=== PATIENT | female | born 1935 | race Caucasian/White ===

== ENCOUNTER 2021-05-08 06:18 | Inpatient (IN) | payer MEDICARE, MEDICAID ==
[~2021-05-08] VITALS: Wt 68.2 kg
[2021-05-08 07:05] LABS: HEMATOCRIT 40.7 % (37.0-47.0); HEMOGLOBIN 13.8 g/dl (12.5-16.0); MEAN CELL VOLUME 94 fl (80.0-100.0); MEAN CORPUSCULAR HEMOGLOBIN 32 pg (27-31); MEAN CORPUSCULAR HGB CONC 34 g/dl (33.0-37.0); PLATELET COUNT 198 K/mm3 (130-400); RED BLOOD COUNT 4.34 M/mm3 (4.10-5.30); REDCELL DISTRIBUTION WIDTH-CV 12.7 % (11.5-14.5)
[2021-05-08 07:21] LABS: ALBUMIN 3.9 gm/dL (3.4-4.8); BILIRUBIN,TOTAL 0.8 mg/dL (0.2-1.2); CALCIUM 9.1 mg/dL (8.4-10.2); CREATININE, serum 1.1 mg/dL (0.57-1.11)
[2021-05-08 07:45] LABS: BAND 12 % (0-10); LYMPHOCYTE 2 % (20.0-51.0); NEUTROPHILS 86 % (42.0-75.2); PLATELET ESTIMATE NORMAL (NORMAL)
[2021-05-08 07:57] LABS: COLLECTION METHOD CLEAN CATCH
[2021-05-08 08:03] LABS: MUCOUS Present (NOT PRESENT); PH 7 (5-8); SQUAMOUS EPITHELIAL 0-2 /hpf (0-10); URINE APPEARANCE Clear (CLEAR/HAZY); URINE BACTERIA None Seen /hpf (NONE SEEN); URINE BILIRUBIN Negative (NEGATIVE); URINE BLOOD Negative (NEGATIVE); URINE COLOR Yellow (YELLOW); URINE GLUCOSE Negative (NEGATIVE); URINE KETONE Negative (NEGATIVE); URINE LEUKOCYTE ESTERASE Negative (NEGATIVE); URINE NITRATE Negative (NEGATIVE); URINE PROTEIN(semi-quant) Negative (NEGATIVE); URINE RBC 0-2 /hpf (0-2); URINE UROBILINOGEN Negative (NEGATIVE)
[2021-05-08] MEDS ORDERED: LASIX 40MG TABL40 MG PO (12:55)
[2021-05-08] MEDS ORDERED: ELIQUIS 5MG PO (12:56)
[2021-05-08] MEDS ORDERED: NEURONTIN300 MG/CAP PO (12:57)
[2021-05-08] MEDS ORDERED: SYNTHROID0.125 MG/T PO (12:57)
[2021-05-08] MEDS ORDERED: CALCIUM 600MG+D1 TAB PO (13:01)
[2021-05-08] MEDS ORDERED: VITAMIN D31000 I1 PO (13:01)
[2021-05-08] MEDS ORDERED: B COMPLEX #11 TA1 PO (13:02)
[2021-05-08 15:31] VITALS: BP 80/40; PULSE 81; TEMP 98.3
[2021-05-08 16:00] VITALS: BP 87/46; PULSE 83; TEMP 98.2
[2021-05-08 19:13] VITALS: BP 110/52
--- NOTE | 2021-05-08 19:26 | NUR ---
Patient admitted to room 358 from ED. Admission assessment completed. Med rec completed. BP soft, all other VSS. Ivania Sam notified of BP's running 80/40's, 500 bolus of LR ordered and administered. Upon recheck, BP's continued to be in the 80's/40's. Jenn contacted. Phone order for 1000 Ml bolous of LR and rate change of maintenance fluids from 150 ml/hr to 200 ml/hr recieved. LR administered as ordered. BP rechecked and read 110/50. All other VSS. Patient is A&O. Denies any pain, discomfort, SOA, or further needs at this time. Call light in reach. Fall percautions in place.
[2021-05-08 19:51] VITALS: BP 96/48; PULSE 74; TEMP 97.4
[2021-05-08 23:52] VITALS: BP 100/81; PULSE 85; TEMP 98.5
[2021-05-09] VITALS (7 sets, daily range): BP systolic 92–106; BP diastolic 42–58; PULSE 72–89; TEMP 97.9–98.7
--- NOTE | 2021-05-09 04:59 | NUR ---
PATIENT CALM AND COOPERATIVE THROUGHOUT THE NIGHT. ZOFRAN ADMINISTERED TWO TIMES THROUGHOUT THE NIGHT DUE TO COMPLAINTS OF NAUSEA.
[2021-05-09 07:48] LABS: MAGNESIUM 1.7 mg/dL (1.6-2.6); POTASSIUM 3.6 mmol/L (3.5-4.5)
[2021-05-09 08:13] LABS: HEMATOCRIT 37.1 % (37.0-47.0); HEMOGLOBIN 12.3 g/dl (12.5-16.0); MEAN CELL VOLUME 95 fl (80.0-100.0); MEAN CORPUSCULAR HEMOGLOBIN 32 pg (27-31); MEAN CORPUSCULAR HGB CONC 33 g/dl (33.0-37.0); MEAN PLATELET VOLUME 10.9 fl (7.4-10.4); PLATELET COUNT 169 K/mm3 (130-400); REDCELL DISTRIBUTION WIDTH-CV 13.5 % (11.5-14.5)
[2021-05-09 08:27] LABS: CALCIUM 8.1 mg/dL (8.4-10.2); CREATININE, serum 1.23 mg/dL (0.57-1.11); POTASSIUM 3.5 mmol/L (3.5-4.5)
--- NOTE | 2021-05-09 08:30 | NUR ---
Pt assessment complete. Pt is sitting up in bed upon entry, she is A/O x4. Her breathing is even and unlabored on RA. Pt denies SOB. Despite low bp, pt denies any dizziness. Pt denies pain at this time, reports she had a headache but Tylenol relieved this. Denies any N/V, states she had a "normal" BM early this am. Tolerating clear liquids without issues. BLE elevated on pillows. No needs at this time. Call light within reach.
[2021-05-09 08:31] LABS: BAND 15 % (0-10); BASOPHIL 1 % (0-2); LYMPHOCYTE 2 % (20.0-51.0); NEUTROPHILS 80 % (42.0-75.2)
[2021-05-09 08:32] LABS: PLATELET ESTIMATE NORMAL (NORMAL)
--- NOTE | 2021-05-09 10:41 | NUR ---
Initial visit; Patient thanked Desk Operator for looking in on her, offering God's blessings and prayer.
--- NOTE | 2021-05-09 10:58 | NUR ---
Social Work student and DIANN Borja met with patient to discuss discharge planning. Patient lives alone in a group home community in [place] called [facility]. Patient reports that she currently reisdes on the third floor. Patient's emergency contact is her brother, Ang, who is reached via his , Dong, phone#([phone]). Patient seees Dr. Ritter at [facility] for primary care. [facility] Patient reports that she utilizes a cane, walker, and a toilet fraud prevention analyst as medical equiptment at home. Patient does not use any oxygen. Patient states that she is independent with her ADL's. Patient says that she has a DPOA-HC filled out, but the hospital does not have a copy. DIANN marcial reached out to Emi at [facility] to secure a copy with no luck. Therefore, the patient's next of kin is her three, adult kids: Pradip Kramer(ph#[phone]) who lives in [place], Amina Kramer(ph#[phone]) who lives in [place], and Gaudencio Nia(ph#[phone]) who lives in [place]. Patient also stated that Gaudencio is reliable to call in times of need. PT reccommended HH, so DIANN marcial followed up with that with patient. DIANN marcial gave patient a list of HH that service [place] from Medicare to gain her preference. Patient said that she is okay with HH coming to see her and picked out [facility] as her preference. Discharge plan: Home with [facility]
--- NOTE | 2021-05-09 11:31 | NUR ---
Contacted Jen with [facility] about patient. SW Student faxed a HH referral to [facility].
--- NOTE | 2021-05-09 14:32 | NUR ---
Pt reports she feels "crummy". Reports she is very cold and shivering, temperature obtained, WNL. Pt reports she has body aches and feels as if she is coming down with something, reports she feels like she has post nasal drip. Reported to WALKER [facility]. Tylenol administered.
--- NOTE | 2021-05-09 20:00 | NUR ---
Patient is in the chair, alert and oriented x 4, VSS. States having nausea, Zofran provided. Assissted to the bed with the use of the walker. Weakness in her legs. Edema noted in BLE, more noticeable on the left, she states some discomfort. Continues with SBP in 100-110. Receiving LR AT 125 ml/hr. Assessment completed, medications provided. She asked for some nasal spray to reduce the nasal congestion and mucus. Veronica contacted and added a nasal spray. No other needs at this time. Call light within reach.
[2021-05-09] MEDS ORDERED: NASACORT OTC NS (20:56)
[2021-05-10 04:05] VITALS: BP 118/52; PULSE 74; TEMP 98.2
--- NOTE | 2021-05-10 05:36 | NUR ---
Patient has change from SBP 91 TO 118. She complains of discomfort in her legs related to fluid accumulation. Some nausea in early night. Zofran provided. Report will be given to day RN.
[2021-05-10 06:07] LABS: POTASSIUM 3.6 mmol/L (3.5-4.5)
[2021-05-10 07:20] VITALS: BP 115/50; PULSE 76; TEMP 98.6
[2021-05-10 07:50] LABS: CALCIUM 8.1 mg/dL (8.4-10.2); CREATININE, serum 0.96 mg/dL (0.57-1.11)
[2021-05-10 08:34] LABS: HEMOGLOBIN 11.7 g/dl (12.5-16.0); MEAN CELL VOLUME 96 fl (80.0-100.0); MEAN CORPUSCULAR HEMOGLOBIN 32 pg (27-31); MEAN CORPUSCULAR HGB CONC 33 g/dl (33.0-37.0); MEAN PLATELET VOLUME 11.2 fl (7.4-10.4); PLATELET COUNT 146 K/mm3 (130-400); RED BLOOD COUNT 3.68 M/mm3 (4.10-5.30); REDCELL DISTRIBUTION WIDTH-CV 13.5 % (11.5-14.5)
[2021-05-10 08:37] LABS: HEMATOCRIT 35.4 % (37.0-47.0)
[2021-05-10] MEDS ORDERED: OMNICEF 300MG300 MG PO (09:00)
[2021-05-10 09:02] LABS: BAND 6 % (0-10); EOSINOPHIL 1 % (0-4); LYMPHOCYTE 3 % (20.0-51.0); NEUTROPHILS 90 % (42.0-75.2); PLATELET ESTIMATE NORMAL (NORMAL)
--- NOTE | 2021-05-10 09:49 | NUR ---
stockroom worker met with patient to discuss today. Asked for nursing to be added to HH orders. Patient asks about clothing. SW checked stock and no pants found for the patient to return home in. Patient states that her brother is going to be here around 1000 and will be providing transportation home. Discharge plan: Home with [facility]
--- NOTE | 2021-05-10 11:26 | NUR ---
Clinical updates and discharge orders faxed to [facility]
--- NOTE | 2021-05-10 11:45 | NUR ---
Scheduled medications given. Shift assessment performed. PRN tylenol given once this shift for headache. Patient states that this medication helped. VSS. Patient A&O. Patient deemed fit for discharge. IV DC'd catheter intact, no signs of phlebitis. Discharge education/instructions given. All question answered. Patient denies any further pain, discomfort, SOA, or further needs at this time. Patient escorted from building via wheelchair by [facility] staff. Family transporting home. Home Health to contact patient.
== END 2021-05-10 11:45 | disposition home health service (06) | DRG 392 ==
LOC: COL.ER 06:18 → MEDICAL 09:27
PROVIDERS: Personal Emergency Response Attendant; Physician Assistant; ADMIT Internal Medicine
DX: A08.4 Viral intestinal infection, unspecified (principal); E03.9 Hypothyroidism, unspecified; G62.9 Polyneuropathy, unspecified; E87.6 Hypokalemia; R09.02 Hypoxemia; Z66 Do not resuscitate; Z96.641 Presence of right artificial hip joint; Z86.718 Personal history of other venous thrombosis and embolism; Z85.43 Personal history of malignant neoplasm of ovary; Z85.828 Personal history of other malignant neoplasm of skin; Z79.01 Long term (current) use of anticoagulants
CPT/HCPCS: 99223-AI; 99232-AI; 99239; J0692; J2405; J3010; J3475; J7030; J7040; J7120; Q9967

== ENCOUNTER 2021-05-12 17:25 | Inpatient (IN) | payer MEDICARE, MEDICAID ==
[~2021-05-12] VITALS: Ht 165.1 cm; Wt 109.1 kg
[~2021-05-12 17:25] MED LIST: B COMPLEX #11 TA1 PO; CALCIUM 600MG+D1 TAB PO; ELIQUIS 5MG PO; LASIX 40MG TABL40 MG PO; NASACORT OTC NS; NEURONTIN300 MG/CAP PO; OMNICEF 300MG300 MG PO; SYNTHROID0.125 MG/T PO; VITAMIN D31000 I1 PO
[2021-05-12 18:24] LABS: HEMATOCRIT 37.4 % (37.0-47.0); HEMOGLOBIN 12.3 g/dl (12.5-16.0); MEAN CELL VOLUME 95 fl (80.0-100.0); MEAN CORPUSCULAR HEMOGLOBIN 31 pg (27-31); MEAN CORPUSCULAR HGB CONC 33 g/dl (33.0-37.0); MEAN PLATELET VOLUME 10.7 fl (7.4-10.4); PLATELET COUNT 177 K/mm3 (130-400); RED BLOOD COUNT 3.94 M/mm3 (4.10-5.30); REDCELL DISTRIBUTION WIDTH-CV 13.2 % (11.5-14.5)
[2021-05-12 18:43] LABS: ALBUMIN 2.8 gm/dL (3.4-4.8); BILIRUBIN,TOTAL 0.3 mg/dL (0.2-1.2); C-REACTIVE PROTEIN 11.96 mg/dL (0.00-0.50); CALCIUM 8.4 mg/dL (8.4-10.2); CREATININE, serum 0.99 mg/dL (0.57-1.11); POTASSIUM 4.1 mmol/L (3.5-4.5); TOTAL PROTEIN 6.3 gm/dL (6.2-8.1)
[2021-05-12 18:50] LABS: TROPONIN-I 0.017 ng/mL (0.00-0.033)
[2021-05-12 19:20] LABS: EOSINOPHIL 5 % (0-4); LYMPHOCYTE 13 % (20.0-51.0); NEUTROPHILS 72 % (42.0-75.2); PLATELET ESTIMATE NORMAL (NORMAL)
[2021-05-12 19:21] LABS: HYPOCHROMIA 1+
[2021-05-12 20:54] VITALS: BP 121/47; PULSE 75; TEMP 97.6
--- NOTE | 2021-05-12 21:26 | NUR ---
PATIENT ARRIVED TO ROOM 309 AT THIS TIME. PATIENT A&O X'S 4, DENIES PAIN OR DISCOMFORT AT THIS TIME. LLE ELEVATED. PATIENT ORIENTED TO ROOM. CALL LIGHT WITHIN REACH. NO REQUESTS OR CONCERNS VERBALIZED BY PATIENT AT THIS TIME.
[2021-05-12 21:53] VITALS: BP 134/72; PULSE 86; TEMP 97.9
--- NOTE | 2021-05-12 22:33 | NUR ---
Vancomycin Initial Dosing Pharmacy Note Ordering provider: Theron Rojas MD Indication/duration: LLE cellulitis Relevant comorbidities: N/A LABS: SCr = 0.99, WBC = 7.8 Recommendation: Will draw trough and follow levels. Loading dose: 1.5 grams Maintenance dose: 1.5 grams every 24 hours Trough goal: 10-15 ug/mL
[2021-05-12 23:13] VITALS: BP 111/41; PULSE 77; TEMP 98.4
[2021-05-13 03:34] VITALS: BP 111/54; PULSE 72; TEMP 97.8
[2021-05-13 06:36] LABS: HEMOGLOBIN 11.5 g/dl (12.5-16.0); MEAN CELL VOLUME 94 fl (80.0-100.0); MEAN CORPUSCULAR HEMOGLOBIN 31 pg (27-31); MEAN CORPUSCULAR HGB CONC 33 g/dl (33.0-37.0); MEAN PLATELET VOLUME 10.5 fl (7.4-10.4); PLATELET COUNT 208 K/mm3 (130-400); RED BLOOD COUNT 3.73 M/mm3 (4.10-5.30); REDCELL DISTRIBUTION WIDTH-CV 13.1 % (11.5-14.5)
[2021-05-13 06:49] LABS: HEMATOCRIT 34.9 % (37.0-47.0)
[2021-05-13 06:51] LABS: CALCIUM 7.8 mg/dL (8.4-10.2); CREATININE, serum 0.81 mg/dL (0.57-1.11); POTASSIUM 3.4 mmol/L (3.5-4.5)
[2021-05-13 07:16] LABS: BAND 3 % (0-10); EOSINOPHIL 8 % (0-4); LYMPHOCYTE 34 % (20.0-51.0); METAMYELOCYTE 1 % (0-0); NEUTROPHILS 50 % (42.0-75.2); PLATELET ESTIMATE NORMAL (NORMAL)
[2021-05-13 07:53] VITALS: BP 125/53; PULSE 70; TEMP 97.9
--- NOTE | 2021-05-13 08:44 | NUR ---
Patient assisted to the BSC; Not walking very far d/t left leg pain r/t cellulitis. Plan this morning is for patient to get a PICC placed. This RN has already spoken w/ Brittney about this case. Patient feels well otherwise and does not have any complaints/concerns.
[2021-05-13 11:09] VITALS: BP 103/50; PULSE 64; TEMP 98
--- NOTE | 2021-05-13 11:14 | NUR ---
DIANN met with the patient to discuss discharge plan and re-admit. The patient recently discharged from the hospital on Thursday, 05/10, with home health services from [facility]. She states that the on-call RN from [facility] saw her on Thursday. She reports that she took her medications as prescribed. The patient returned back to the emergency department yesterday for left lower extremity pain and swelling. She was admitted inpatient for left lower extremity cellulitis with failure of outpatient management. The patient lives alone in [place]. She reports needing some assistance with bathing and has a cane and walker. She states that [facility] plans to assist her with bathing. The patient's PCP is Dr. Theresa Ritter and she receives her medications from [facility]. The patient does not have a DPOA-HC in EMR, but she states that she does have one completed and that she will need to bring a copy in. She states that she designated her brother, Ang Trujillo (ph#[phone]), and son, Gaudencio Kramer (ph#[phone]). The patient's next of kin are her three children: Pradip Ratliff (ph#[phone]), and Amina Kramer (ph#[phone]). The patient plans on returning home and resuming home health from [facility] upon discharge. She states that she would be interested in SNF, if it is being recommended. DIANN attempted to contact Jen at [facility]. DIANN left her a voicemail and faxed over updates. SW to continue to follow. *Discharge plan: home with home health. Will await therapy's recs*
--- NOTE | 2021-05-13 14:37 | NUR ---
Patient has done well so far. PICC is in place and working well.
[2021-05-13 15:12] VITALS: BP 110/51; PULSE 68; TEMP 98.2
[2021-05-13 19:58] VITALS: BP 121/62; PULSE 67; TEMP 97.9
--- NOTE | 2021-05-13 20:10 | NUR ---
Patient is resting in bed, alert and oriented x 4, VSS. States pain with movement and when she stands up on her left leg. Assessment completed, medications provided. No other needs at this time. Call light within reach.
[2021-05-13 23:32] VITALS: BP 101/48; PULSE 63; TEMP 98.1
[2021-05-14 04:40] VITALS: BP 113/44; PULSE 62; TEMP 97.7
--- NOTE | 2021-05-14 06:22 | NUR ---
Patient states improvement in her leg, she saids it is less swelling and less painful. She has been going to the restroom with minimal assistance but the walker. Her leg has been kept elevated. Shift report will be given to day RN.
[2021-05-14 07:55] VITALS: BP 135/75; PULSE 78; TEMP 98.1
--- NOTE | 2021-05-14 10:57 | NUR ---
Patient is doing well this morning and does not have any complaints. Feels as though her leg is getting better; swelling has decreased and is less painful.
[2021-05-14 12:05] VITALS: BP 119/48; PULSE 60; TEMP 98.1
[2021-05-14 15:20] VITALS: BP 125/54; PULSE 78; TEMP 97.8
--- NOTE | 2021-05-14 17:49 | NUR ---
Patient doing well this evening and has not expressed any concerns. Patient sat in the recliner for a bit today. Has been walking to the bathroom w/ SBA.
[2021-05-14 19:21] VITALS: BP 122/51; PULSE 74; TEMP 98
--- NOTE | 2021-05-14 20:50 | NUR ---
Patient is resting in bed, alert and oriented x 4, vss, states her pain is present when she moves and stand up or walk with her left leg. Assessment completed, medications provided. No other needs at this time. Call light within reach.
[2021-05-14 23:58] VITALS: BP 123/67; PULSE 65; TEMP 98
[2021-05-15 03:58] VITALS: BP 119/50; PULSE 55; TEMP 97.8
--- NOTE | 2021-05-15 06:27 | NUR ---
Patient has had an uneventful night. Some eyedrops and tylenol provided PRN. Report will be given to day RN.
[2021-05-15 06:40] LABS: CALCIUM 8.1 mg/dL (8.4-10.2); CREATININE, serum 0.77 mg/dL (0.57-1.11); POTASSIUM 3.9 mmol/L (3.5-4.5)
[2021-05-15 06:46] LABS: HEMOGLOBIN 11.2 g/dl (12.5-16.0); MEAN CELL VOLUME 95 fl (80.0-100.0); MEAN CORPUSCULAR HEMOGLOBIN 32 pg (27-31); MEAN CORPUSCULAR HGB CONC 33 g/dl (33.0-37.0); MEAN PLATELET VOLUME 10.1 fl (7.4-10.4); PLATELET COUNT 258 K/mm3 (130-400); RED BLOOD COUNT 3.56 M/mm3 (4.10-5.30); REDCELL DISTRIBUTION WIDTH-CV 13.1 % (11.5-14.5)
[2021-05-15 07:01] LABS: HEMATOCRIT 33.7 % (37.0-47.0)
[2021-05-15 07:53] VITALS: BP 123/48; PULSE 59; TEMP 97.7
[2021-05-15 08:14] LABS: BAND 9 % (0-10); BASOPHIL 2 % (0-2); EOSINOPHIL 8 % (0-4); LYMPHOCYTE 18 % (20.0-51.0); METAMYELOCYTE 2 % (0-0); MYELOCYTE 1 % (0-0); NEUTROPHILS 53 % (42.0-75.2); PLATELET ESTIMATE NORMAL (NORMAL)
--- NOTE | 2021-05-15 09:45 | NUR ---
PATIENT IN GOOD CONDITION THIS MORNING, PLEASANT, A&O X4. NO COMPLAINTS AT THIS TIME. ABLE TO AMBULATE WELL ON OWN, ALTHOUGH THIS DOES CAUSE PAIN IN THE LEFT LEG DIAGNOSED WITH CELLULITIS AND CURRENTLY BEING TREATED FOR THIS. POSITIVE SENSATION IN LEFT LEG AND FOOT, GOOD PEDAL PULSES PALPATED BILATERAL. LEFT LEG IS RED IN APPEAR AND WARM TO TOUCH. NO BREAKS IN SKIN OR ULCERATIONS AT THIS TIME. NO S/S OF INFECTION.
[2021-05-15 11:19] VITALS: BP 125/52; PULSE 62; TEMP 97.9
[2021-05-15 16:45] VITALS: BP 130/65; PULSE 72; TEMP 97.5
[2021-05-15 20:02] VITALS: BP 125/51; PULSE 79; TEMP 97.9
--- NOTE | 2021-05-15 20:40 | NUR ---
Patient is resting in bed, alert and oriented x 4, VSS. Assisted to change clothes. States she feels edema is increasing. Assessment completed, medications provided. No other needs at this time. Call light within reach.
[2021-05-16 00:33] VITALS: BP 113/49; PULSE 62; TEMP 97.3
[2021-05-16 04:18] VITALS: BP 121/49; PULSE 58; TEMP 97.6
[2021-05-16 06:05] LABS: HEMOGLOBIN 11.7 g/dl (12.5-16.0); MEAN CELL VOLUME 96 fl (80.0-100.0); MEAN CORPUSCULAR HEMOGLOBIN 32 pg (27-31); MEAN CORPUSCULAR HGB CONC 33 g/dl (33.0-37.0); MEAN PLATELET VOLUME 9.6 fl (7.4-10.4); PLATELET COUNT 268 K/mm3 (130-400); REDCELL DISTRIBUTION WIDTH-CV 13.2 % (11.5-14.5)
[2021-05-16 06:08] LABS: HEMATOCRIT 35.6 % (37.0-47.0)
--- NOTE | 2021-05-16 06:12 | NUR ---
Patient rested along the night. She asked for Tylenol before going to sleep. No other needs. Report will be given to day RN.
[2021-05-16 06:21] LABS: CALCIUM 8.3 mg/dL (8.4-10.2); CREATININE, serum 0.83 mg/dL (0.57-1.11); POTASSIUM 4.1 mmol/L (3.5-4.5)
[2021-05-16 07:20] LABS: BAND 1 % (0-10); EOSINOPHIL 5 % (0-4); LYMPHOCYTE 22 % (20.0-51.0); NEUTROPHILS 65 % (42.0-75.2); NUCLEATED RED BLOOD CELL 1 (0-6); PLATELET ESTIMATE NORMAL (NORMAL)
[2021-05-16 08:10] VITALS: BP 128/54; PULSE 74; TEMP 97.5
[2021-05-16] MEDS ORDERED: AMOXICILLIN 8751 TAB PO (09:04)
--- NOTE | 2021-05-16 10:29 | NUR ---
Notified that the patient will need transportation home. Patient has a brother that lives in town, but is unable to transport the patient home due to the weather. This SW notified RN that we will arrange for the patient to be transported by [employer] once the patient is ready to go. Asked RN to let me know once the patient has discharge information signed and is packed up.
--- NOTE | 2021-05-16 11:03 | NUR ---
PATIENT DOING WELL THIS SHIFT. SET TO DISCHARGE HOME WITH [facility] ANTIBIOTICS FOR CELLULITIS TO LEFT LOWER EXT. NO COMPLAINTS AT THIS TIME.
--- NOTE | 2021-05-17 11:09 | NUR ---
Clincial updates and discharge orders faxed to Jen at [facility]
== END 2021-05-16 11:04 | disposition home health service (06) | DRG 603 ==
LOC: COL.ER 17:25 → MEDICAL 19:51
PROVIDERS: Nurse Practitioner; Physician Assistant; Student in an Organized Health Care Education/Training Program; ADMIT Student in an Organized Health Care Education/Training Program
PROC: 02HV33Z Insertion of Infusion Device into Superior Vena Cava, Percutaneous Approach (ICD-10-PCS; principal; 2021-05-13)
DX: L03.116 Cellulitis of left lower limb (principal); G62.9 Polyneuropathy, unspecified; E03.9 Hypothyroidism, unspecified; Z96.641 Presence of right artificial hip joint; Z20.822 Contact with and (suspected) exposure to COVID-19; Z85.43 Personal history of malignant neoplasm of ovary; Z86.718 Personal history of other venous thrombosis and embolism; Z79.01 Long term (current) use of anticoagulants; Z85.828 Personal history of other malignant neoplasm of skin; Z88.0 Allergy status to penicillin; Z23 Encounter for immunization
CPT/HCPCS: 99223-AI; 99232-AI; 99233-AI; 99239; C1751; J0696; J3370; J7050

== ENCOUNTER 2021-05-25 23:23 | Observation (INO) | payer MEDICARE, MEDICAID ==
[~2021-05-25] VITALS: Ht 165.1 cm; Wt 101.2 kg
[~2021-05-25 23:23] MED LIST changes: +AMOXICILLIN 8751 TAB PO
[2021-05-25 23:57] LABS: BASO # 0.1 K/mm3 (0.0-0.2); EOS # 0.2 K/mm3 (0.0-0.7); EOS % 4.3 % (0.0-4.0); GRAN # 2.4 K/mm3 (1.4-6.5); GRAN % 50.7 % (42.2-75.2); HEMATOCRIT 38.2 % (37.0-47.0); HEMOGLOBIN 12.9 g/dl (12.5-16.0); LYMPH # 1.3 K/mm3 (1.2-3.4); LYMPH % 27.5 % (20.0-51.0); MEAN CELL VOLUME 92 fl (80.0-100.0); MEAN CORPUSCULAR HEMOGLOBIN 31 pg (27-31); MEAN CORPUSCULAR HGB CONC 34 g/dl (33.0-37.0); MONO # 0.7 K/mm3 (0.1-0.6); MONO % 14.3 % (1.7-9.3); PLATELET COUNT 316 K/mm3 (130-400); RED BLOOD COUNT 4.17 M/mm3 (4.10-5.30)
[2021-05-26 00:10] LABS: ALBUMIN 3.6 gm/dL (3.4-4.8); BILIRUBIN,TOTAL 0.4 mg/dL (0.2-1.2); C-REACTIVE PROTEIN 0.79 mg/dL (0.00-0.50); CALCIUM 9.2 mg/dL (8.4-10.2); CREATININE, serum 0.98 mg/dL (0.57-1.11); POTASSIUM 3.5 mmol/L (3.5-4.5); TOTAL PROTEIN 7.3 gm/dL (6.2-8.1)
[2021-05-26] MEDS ORDERED: ZOFRAN 4MG T4 MG/TAB PO (01:07)
[2021-05-26] MEDS ORDERED: CEPHALEXIN500 M1 PO (01:07)
[2021-05-26] MEDS ORDERED: B COMPLEX #11 TA1 PO (01:08)
[2021-05-26] MEDS ORDERED: VALTREX1 GM PO (01:08)
[2021-05-26] MEDS ORDERED: LASIX 40MG TABL40 MG PO (01:11)
[2021-05-26] MEDS ORDERED: PEPCID AC 10MG10 MG PO (01:11)
[2021-05-26] MEDS ORDERED: CLARITIN 1010 MG/TAB PO (01:12)
--- NOTE | 2021-05-26 02:33 | NUR ---
Arrived to room 344 via stretcher from ED.
--- NOTE | 2021-05-26 03:09 | NUR ---
Vancomycin Initial Dosing Pharmacy Note Ordering provider: Theron Rojas MD Indication/duration: Cellulitis x 7 days Relevant comorbidities: N/A LABS: WBC = 4.7, SCr = 0.98 Recommendation: Will draw troughs and follow levels. Loading dose: 1.5 grams Maintenance dose: 1.5 grams every 24 hours Trough goal: 10-15 ug/mL
[2021-05-26 03:16] VITALS: BP 114/51; PULSE 63; TEMP 97.3
--- NOTE | 2021-05-26 05:10 | NUR ---
Patient had an uneventful night. Denies pain/nausea/shortness of breath. Currently on O2@2L/NC due to MINE and no CPAP, otherwise on room air. INT to right [id number] without difficulty. LLE elevated on pillows. Denies current needs. Call light in reach. Will monitor.
[2021-05-26 06:40] LABS: BASO # 0.1 K/mm3 (0.0-0.2); BASO % 3.1 % (0.0-2.0); CALCIUM 8.1 mg/dL (8.4-10.2); CREATININE, serum 0.78 mg/dL (0.57-1.11); EOS # 0.3 K/mm3 (0.0-0.7); EOS % 7.3 % (0.0-4.0); GRAN # 1.7 K/mm3 (1.4-6.5); GRAN % 46.9 % (42.2-75.2); HEMATOCRIT 47.5 % (37.0-47.0); LYMPH # 1.1 K/mm3 (1.2-3.4); LYMPH % 30.3 % (20.0-51.0); MEAN CELL VOLUME 95 fl (80.0-100.0); MEAN CORPUSCULAR HGB CONC 33 g/dl (33.0-37.0); MEAN PLATELET VOLUME 10.4 fl (7.4-10.4); MONO # 0.4 K/mm3 (0.1-0.6); MONO % 12.1 % (1.7-9.3); POTASSIUM 3.4 mmol/L (3.5-4.5); RED BLOOD COUNT 5.01 M/mm3 (4.10-5.30); REDCELL DISTRIBUTION WIDTH-CV 13.2 % (11.5-14.5)
[2021-05-26 06:42] LABS: HEMOGLOBIN 15.6 g/dl (12.5-16.0); MEAN CORPUSCULAR HEMOGLOBIN 31 pg (27-31)
[2021-05-26 06:43] LABS: PLATELET COUNT 174 K/mm3 (130-400)
[2021-05-26 08:05] VITALS: BP 138/51; PULSE 62; TEMP 97.9
--- NOTE | 2021-05-26 10:52 | NUR ---
PT UP TO SHOWER AFTER BREAKFAST WITH SBA X1. PT SHOWERED AND THEN RETURNED TO BED, PT A\O X4. INDEPENDENT IN ROOM.
[2021-05-26 11:56] VITALS: BP 137/70; PULSE 69; TEMP 97.5
--- NOTE | 2021-05-26 13:37 | NUR ---
willow worker met with patient for discharge planning. Patient reports she lives alone at home, in an apartment, and utilizes a walker and a cane for ambulation. She has two previous recent hospitalizations and has been working with [facility] services for physical and occupational therapy and to assist with ADLs (showering/bathing). She informs she likes the service, and she is open to their continued services at discharge as needed. Her brother Ang Trujillo ([phone], , and son Gaudencio Kramer ([phone], actively involved in her care. willow worker unable to confirm DPOA at this time; no DPOA paperwork in the medical record. Patient's primary care physician is Dr. Theresa Ritter, and she gets her medications from [facility] pharmacy. Social work to follow for discharge planning/needs. *Discharge plan: home with HH, pending need for increased level of care*
[2021-05-26 16:00] VITALS: BP 109/48; PULSE 64; TEMP 97.4
--- NOTE | 2021-05-26 20:00 | NUR ---
PT RESTING IN BED. CONTINUED ISOLATION FOR SHINGLES. PT DENEIS PAIN. NO NEEDS AT THIS TIME. CALL LIGHT IN REACH. BED ALARM SET.
[2021-05-26 21:23] VITALS: BP 116/54; PULSE 68; TEMP 98.1
[2021-05-27 00:39] VITALS: BP 119/60; PULSE 77; TEMP 97.2
[2021-05-27 03:52] VITALS: BP 125/50; PULSE 69; TEMP 97.7
[2021-05-27 06:29] LABS: CALCIUM 8.2 mg/dL (8.4-10.2); CREATININE, serum 0.78 mg/dL (0.57-1.11); POTASSIUM 3.6 mmol/L (3.5-4.5)
[2021-05-27 06:38] LABS: BASO # 0.1 K/mm3 (0.0-0.2); BASO % 2.7 % (0.0-2.0); EOS # 0.3 K/mm3 (0.0-0.7); EOS % 6.8 % (0.0-4.0); GRAN # 1.7 K/mm3 (1.4-6.5); GRAN % 46.3 % (42.2-75.2); LYMPH # 1.1 K/mm3 (1.2-3.4); LYMPH % 29.7 % (20.0-51.0); MEAN CELL VOLUME 93 fl (80.0-100.0); MEAN CORPUSCULAR HGB CONC 34 g/dl (33.0-37.0); MEAN PLATELET VOLUME 10.2 fl (7.4-10.4); MONO # 0.5 K/mm3 (0.1-0.6); MONO % 14.2 % (1.7-9.3); PLATELET COUNT 258 K/mm3 (130-400); RED BLOOD COUNT 3.58 M/mm3 (4.10-5.30); REDCELL DISTRIBUTION WIDTH-CV 13.1 % (11.5-14.5)
[2021-05-27 07:00] LABS: HEMATOCRIT 33.2 % (37.0-47.0); HEMOGLOBIN 11.2 g/dl (12.5-16.0); MEAN CORPUSCULAR HEMOGLOBIN 31 pg (27-31)
[2021-05-27 07:11] VITALS: BP 118/53; PULSE 66; TEMP 97.7
--- NOTE | 2021-05-27 10:30 | NUR ---
PERIPHERAL IV IS REMOVED FROM PT'S RIGHT HAND. IV HAD BEEN LEAKING, BLEEDING ET WAS PAINFUL FOR PT. PT STATES THAT THE LAST TIME SHE HAD NEEDED ANTIBIOTICS, THEY GAVE HER A PICC LINE, WOULD LIKE THIS NURSE TO ASK HOSPITALIST BEFORE ATTEMPTING TO INSERT ANOTHER IV. WILL PASS ON TO HOSPITALIST DURING ROUNDS.
[2021-05-27 12:17] VITALS: BP 122/60; PULSE 68; TEMP 97.5
--- NOTE | 2021-05-27 16:13 | NUR ---
Jen, at [facility], contacted DIANN to follow up on the patient. Jen states that her staff members would recommend SNF for the patient. The patient is observation status, but had an inpatient stay 06/12-06/16. The patient is in contact precautions. DIANN contacted the patient to review discharge plan and discuss home health's recommendation. Our PT has recommended returning home with home health. The patient states that she is doing wonderfull and that therapy went well today. She states that she would be interested in SNF though. She would prefer 1) [facility] 2) [facility]. DIANN informed her that due to her Medicare advantage plan, we would have to get auth for either [facility] or [facility]. The patient verbalized understanding. DIANN contacted and faxed a referral to Sheeba at [facility]. DIANN consulted Karely with [facility]. Awaiting screens. *Discharge plan: post-acute rehab. Referrals out and will need auth*
[2021-05-27 16:17] VITALS: BP 126/56; PULSE 72; TEMP 97.4
--- NOTE | 2021-05-27 17:28 | NUR ---
PT IS IN BED, HAS BEEN UP TO BR WITH SBA THROUGHOUT DAY. NEW PERIPHERAL IV WAS INSERTED INTO PT'S LEFT FA THIS AFTERNOON, VANCOCIN IV CURRENTLY INFUSING. PT IS PLEASANT ET COOPERATIVE, HAS DENIED PAIN. LLE CONTINUES TO BE RED ET EDEMATOUS. SHINGLES LESION ON LEFT BUTTOCKS IS CRUSTED OVER ET RED. PT DENIES NEEDS @ THIS TIME. CALL LIGHT WITHIN REACH.
[2021-05-27 21:25] VITALS: BP 143/66; PULSE 80; TEMP 97.7
--- NOTE | 2021-05-27 23:39 | NUR ---
PATIENT DOING WELL TONIGHT. ALERT AND ORIENTED. DENIES PAIN. LLE IS REDDENED AND SWOLLEN. BUT PT STATES IT IS NOT MORE OR LESS THEN IT WAS EARLIER. L BUTTOCK SHINGLES SCABS ARE OPEN TO AIR. INT L FA PATENT AND FLUSHED. HS MEDICATIONS GIVEN. DENIES FURTHER NEEDS. CALL LIGHT WITHIN REACH. RESTING COMFORTABLY IN BED.
[2021-05-28 00:46] VITALS: BP 137/53; PULSE 78; TEMP 97.4
[2021-05-28 05:18] VITALS: BP 130/53; PULSE 73; TEMP 97.3
[2021-05-28 07:30] VITALS: BP 129/62; PULSE 69; TEMP 98.5
--- NOTE | 2021-05-28 07:41 | NUR ---
PT IS IN BED SITTING UP, EATING BREAKFAST. CONTACT PRECAUTIONS IN PLACE. PT REPORTS NO PAIN EXCEPT FOR OCCASIONAL RANDOM BURNING IN HER LEFT LEG. EDEMA IN LEFT ANKLE APPEARS TO BE DECREASED TODAY, PT HAS BEEN ELEVATING ON PILLOWS. PT STATES THAT SHE HAS NOT HAD A BM SINCE THURSDAY ET IS REQUESTING A STOOL SOFTENER. WILL PASS ON TO HOSPITALIST. PT DENIES NEEDS. CALL LIGHT WITHIN REACH.
--- NOTE | 2021-05-28 09:27 | NUR ---
PT STATES THAT SHE HAS HAD SHINGLES LESION ON HER LEFT BUTTOCKS FOR ABOUT 2 WEEKS BUT IT WAS NOT ADDRESSED WITH HER PCP UNTIL THURSDAY. LEFT LOWER LEG CELLULITIS IS NOT CURRENTLY WEEPING BUT SKIN IS DRY ET FLAKY. INFECTION CONTROL NURSE NOTIFIED.
--- NOTE | 2021-05-28 10:51 | NUR ---
Karely, [facility] Director, reports that they have declined the patient; due to being too functional and independent.
--- NOTE | 2021-05-28 11:01 | NUR ---
Sheeba, at [facility], reports that they are good to accept the patient and their finance team is working on auth for her.
[2021-05-28 11:31] VITALS: BP 114/55; PULSE 63; TEMP 97.5
--- NOTE | 2021-05-28 12:50 | NUR ---
PER INFECTIOUS DISEASE NURSE, PT WILL BE TAKEN OUT OF CONTACT PRECAUTIONS @ THIS TIME, BUT PT IS TO BE PLACED BACK UNDER CONTACT PRECAUTIONS IF SHINGLES LESION OR LEFT LEG BEGINS DRAINING OR OPENS UP. OKAYED BY DR. SHEEHAN. SHINGLES LESION ON LEFT BUTTOCKS IS CRUSTED OVER ET DRY. LEFT LOWER LEG EDEMA IS NOT WEEPING. PT IS NOTIFIED OF CHANGE.
--- NOTE | 2021-05-28 14:04 | NUR ---
PT HAS AMBULATED X2 IN HALLWAY WITH THIS NURSE ET PHYSICAL THERAPY. PT HAD BEEN FREQUENTLY WALKING IN HER ROOM BEFORE PRECAUTIONS WERE LIFTED. PT USES CANE BUT GAIT IS STEADY.
[2021-05-28 15:48] VITALS: BP 120/57; PULSE 66; TEMP 97.4
--- NOTE | 2021-05-28 17:10 | NUR ---
PT'S IV IN LEFT FA BEGINS LEAKING WHILE VANCOCIN IV. SITE IS RED. IV IS DISCONTINUED ET A NEW IV INSERTED IN A DIFFERENT LOCATION ON PT'S LEFT FA. PT TOLERATES WELL. VANCOCIN IV RESTARTED.
[2021-05-28 20:33] VITALS: BP 113/67; PULSE 71; TEMP 97.7
[2021-05-29 00:59] VITALS: BP 105/45; PULSE 70; TEMP 97.7
--- NOTE | 2021-05-29 01:48 | NUR ---
Report received from day shift nurse. Patient is here due to LLE cellulitis. Full body assessment completed and vitals signs are WNL. Patient is pleasant and A&Ox3. Patient has been ambulating throughout the halls periodically and has a steady gate and she denies weakness. Patient is no longer on precautions due to shingles. She denies having pain and has had an uneventful evening thus far. No other complaints at this time. Call light within reach.
[2021-05-29 05:17] VITALS: BP 118/71; PULSE 70; TEMP 97.5
[2021-05-29 08:00] VITALS: BP 129/60; PULSE 74; TEMP 98.2
--- NOTE | 2021-05-29 09:52 | NUR ---
AISandi ISLAS CALLS TO ASK WHETHER THE PT WILL NEED A PICC LINE FOR ANTIBIOTICS. PT HAS HAD MULTIPLE IVS REPLACED OVER SEVERAL DAYS. WILL PASS ON TO HOSPITALIST DURING ROUNDS.
[2021-05-29 11:41] VITALS: BP 132/78; PULSE 67; TEMP 97.4
[2021-05-29] MEDS ORDERED: MONODOX100 PO (12:01)
[2021-05-29] MEDS ORDERED: CEPHALEXIN500 M1 PO (12:02)
[2021-05-29] MEDS ORDERED: TYLENOL 500MG500 MG PO (12:05)
[2021-05-29] MEDS ORDERED: VALTREX1 GM PO (12:06)
--- NOTE | 2021-05-29 12:49 | NUR ---
Juan, at [facility], reports that they received auth from the patient's insurance. SW notified the hospitalist and updated the patient. The hospitalist is awaiting ID's final recommendations for antibiotics. The hospitalist is looking at discharge later today or tomorrow, depending on ID's recs and when he puts them in. DIANN updated the patient and she is in agreement to the plan.
--- NOTE | 2021-05-29 13:19 | NUR ---
ID is recommending oral antibiotics. DIANN notified Juan at [facility]. Juan reports that they are good to accept the patient. DIANN met with the patient to update. She is in agreement to the plan. The patient is to discharge today, 05/29, to [facility] for a skilled stay. Transportation was scheduled at 1445, via [facility]. DIANN informed the patient and her RN of the time. No additional needs at this time.
[2021-05-29 15:00] VITALS: BP 132/78; PULSE 67; TEMP 97.4
--- NOTE | 2021-05-29 15:30 | NUR ---
PT HAS LEFT HOSPITAL WITH TRANSPORTATION FROM [facility].
== END 2021-05-29 15:20 | disposition home or self-care (01) ==
LOC: COL.ER 23:23 → SURG 05-26 00:54
PROVIDERS: Emergency Medicine; Student in an Organized Health Care Education/Training Program; ADMIT Student in an Organized Health Care Education/Training Program
DX: L03.116 Cellulitis of left lower limb (principal); M79.662 Pain in left lower leg; I82.403 Acute embolism and thrombosis of unspecified deep veins of lower extremity, bilateral; E03.9 Hypothyroidism, unspecified; G62.9 Polyneuropathy, unspecified; B02.9 Zoster without complications; R53.81 Other malaise; Z85.43 Personal history of malignant neoplasm of ovary; Z79.899 Other long term (current) drug therapy; Z79.890 Hormone replacement therapy; Z79.01 Long term (current) use of anticoagulants
CPT/HCPCS: G0378; J0696; J3370; J7030; J7050

== ENCOUNTER → 2021-09-19 | Outpatient (CLI) | payer MEDICARE, MEDICAID ==
[~2021-09-19] MED LIST changes: +CEPHALEXIN500 M1 PO; +CLARITIN 1010 MG/TAB PO; +MONODOX100 PO; +PEPCID AC 10MG10 MG PO; +TYLENOL 500MG500 MG PO; +VALTREX1 GM PO; +ZOFRAN 4MG T4 MG/TAB PO
== END ==
LOC: COL.VAS 10:16
DX: M79.662 Pain in left lower leg (principal); M79.89 Other specified soft tissue disorders

== ENCOUNTER 2022-04-01 16:48 | Emergency (ER) | payer MEDICARE, MEDICAID ==
[~2022-04-01] VITALS: Ht 165.1 cm; Wt 96.4 kg
[2022-04-01 17:08] VITALS: TEMP 98.3
[2022-04-01 17:41] LABS: BASO % 0.6 % (0.0-2.0); EOS % 0.1 % (0.0-4.0); HEMATOCRIT 40.4 % (37.0-47.0); HEMOGLOBIN 13.5 g/dl (12.5-16.0); LYMPH # 0.3 K/mm3 (1.2-3.4); LYMPH % 4.6 % (20.0-51.0); MEAN CELL VOLUME 94 fl (80.0-100.0); MEAN CORPUSCULAR HEMOGLOBIN 31 pg (27-31); MEAN CORPUSCULAR HGB CONC 33 g/dl (33.0-37.0); MEAN PLATELET VOLUME 9.7 fl (7.4-10.4); MONO # 0.6 K/mm3 (0.1-0.6); MONO % 8.6 % (1.7-9.3); PLATELET COUNT 202 K/mm3 (130-400); REDCELL DISTRIBUTION WIDTH-CV 12.4 % (11.5-14.5)
[2022-04-01 17:57] LABS: ALBUMIN 3.4 gm/dL (3.4-4.8); BILIRUBIN,TOTAL 0.6 mg/dL (0.2-1.2); C-REACTIVE PROTEIN 6.59 mg/dL (0.00-0.50); CALCIUM 8.9 mg/dL (8.4-10.2); CREATININE, serum 1.07 mg/dL (0.57-1.11); POTASSIUM 3.2 mmol/L (3.5-4.5); TOTAL PROTEIN 6.9 gm/dL (6.2-8.1)
[2022-04-01] MEDS ORDERED: PAXLOVID CO-PA1 EACH PO (18:56)
[2022-04-01 19:12] VITALS: BP 106/59; PULSE 70
== END 2022-04-01 19:21 | disposition home or self-care (01) ==
LOC: COL.ER 16:48
PROVIDERS: Nurse Practitioner
DX: U07.1 COVID-19 (principal); R05.9 Cough, unspecified; R53.83 Other fatigue; R09.81 Nasal congestion; R53.1 Weakness; R11.0 Nausea; R68.83 Chills (without fever); Z86.718 Personal history of other venous thrombosis and embolism; Z91.040 Latex allergy status; Z28.310 Unvaccinated for COVID-19; Z79.01 Long term (current) use of anticoagulants